=== PATIENT | male | born 1985 | race Caucasian/White ===

== ENCOUNTER 2021-04-18 02:23 | Inpatient (IN) | payer OTHER ==
[~2021-04-18] VITALS: Ht 170.2 cm; Wt 95.1 kg
[~2021-04-18 02:23] MED LIST: ALBU90OI INH; AZIT250 PO; NAPR220 PO; Stromectol3 MG PO
[2021-04-18] MEDS ORDERED: PRED20 PO (05:41)
[2021-04-18] MEDS ORDERED: IVERMECTIN3 MG PO (05:42)
[2021-04-18 06:08] LABS: BASOPHILS ABSOLUTE AUTO 0.01 K/mm3 (0.00-0.23); BASOPHILS PERCENT AUTO 0 % (0-2); EOSINOPHILS PERCENT AUTO 0 % (0-6); Hematocrit 39.7 % (37.0-53.0); Hemoglobin 13.1 g/dL (13.5-17.5); IMMATURE GRAN ABSOLUTE AUTO 0.08 K/mm3 (0.00-0.10); IMMATURE GRAN PERCENT AUTO 1 % (0-1); LYMPHOCYTES ABSOLUTE AUTO 0.86 K/mm3 (0.84-5.20); LYMPHOCYTES PERCENT AUTO 9 % (21-46); MONOCYTES ABSOLUTE AUTO 0.41 K/mm3 (0.16-1.47); MONOCYTES PERCENT AUTO 4 % (4-13); Mean Corpuscular HGB 28.5 pg (26.0-34.0); Mean Corpuscular Volume 86 fL (80-100); Mean Platelet Volume 10.1 fL (9.1-12.4); NEUTROPHILS ABSOLUTE AUTO 8.66 K/mm3 (1.96-9.15); NEUTROPHILS PERCENT AUTO 86 % (41-73); Platelet Count 218 K/mm3 (150-400); RDW Standard Deviation 41.1 fL (35.1-46.3); White Blood Cell Count 10.02 K/mm3 (4.00-11.30)
[2021-04-18 06:24] LABS: Alanine Aminotransfer (ALT/SGP 31 U/L (12-78); Albumin, Blood 2.8 g/dL (3.4-5.0); Albumin/Globulin Ratio 0.7 (0.8-1.8); Alk Phos 54 U/L (50-136); Anion Gap 8 mmol/L (6-16); Aspartate Aminotrans (AST/SGOT 31 U/L (12-37); Bilirubin, Total 0.4 mg/dL (0.1-1.0); Blood Urea Nitrogen 11 mg/dL (8-24); Bun/Creatinine Ratio 15.3 (12.0-20.0); CO2, Blood 25 mmol/L (21-32); Chloride, Blood 103 mmol/L (98-108); Creatinine, Blood 0.72 mg/dL (0.60-1.20); Globulin, Blood 4.2 g/dL (2.2-4.0); Glomerular Filtration Rate >60 (60-); Glucose, Blood 125 mg/dL (70-99); Sodium, Blood 136 mmol/L (136-145)
--- NOTE | 2021-04-18 16:41 | NUR ---
SHIFT SUMMARY PT ARRIVED FROM ED THIS AFTERNOON @ APPROX 1230. PT IS NOW ON 60 L/MIN c 55% VIA AIRVO. AT REST PT SATS REMAINED ABOVED 90% USING 15 L/MIN HIGH FLOW NC, WITH AMBULATION PT WOULD QUICKLY DROP TO THE HIGH 70'S LOW 80'S. RT RECOMMENDED AIRVO AT THAT TIME. LS COARSE @ BASES. PT WILL BEGIN REMDESIVER, LOVENOX, AND DECADRON. PT DENIES ANY DISTRESS OR WORSENING OF SYMPTOMS AT THIS TIME. HE IS CURRENTLY RESTING IN BED c CALL LIGHT WITHIN REACH, O2 SATS @ 92%.
--- NOTE | 2021-04-18 17:42 | NUR ---
Darius was resting and appeared comfortable and well attended to. I provided social attention, spiritual encouragement and audible intercession for non-pharmacologic benefit. Darius expressed appreciation for the support and consolation.
--- NOTE | 2021-04-18 18:19 | NUR ---
PHYSICIAN NOTIFIED PT SATING IN THE LOW 80% ON 60 L/MIN FiO2 @ 55%, DISCUSSED WITH RT, STATED TO JUMP PT UP TO 75% PT IS SATING 87-90%. CALLED PHYSICIAN FOR UPDATE, MARCO WANTS PT MOVED TO PCU. CHARGE NURSE NOTIFIED AND WAITING FOR BED. WILL CONTINUE TO MONITOR PT, PT IS ON CONT PULSE OX.
--- NOTE | 2021-04-19 02:40 | NUR ---
This nurse in chart trying to find out which Doctor ordered pt transfer to PCU, 04/18/21.
[2021-04-19 03:44] LABS: Hematocrit 43.2 % (37.0-53.0); Mean Corpuscular HGB 28.5 pg (26.0-34.0); Mean Corpuscular HGB Conc 32.4 g/dL (31.5-36.5); Mean Corpuscular Volume 88 fL (80-100); Mean Platelet Volume 9.8 fL (9.1-12.4); Platelet Count 246 K/mm3 (150-400); RDW Standard Deviation 41.6 fL (35.1-46.3); Red Blood Cell Count 4.92 M/mm3 (4.30-5.90); White Blood Cell Count 8.76 K/mm3 (4.00-11.30)
[2021-04-19 04:12] LABS: Alanine Aminotransfer (ALT/SGP 31 U/L (12-78); Albumin, Blood 2.7 g/dL (3.4-5.0); Albumin/Globulin Ratio 0.6 (0.8-1.8); Alk Phos 55 U/L (50-136); Anion Gap 5 mmol/L (6-16); Aspartate Aminotrans (AST/SGOT 32 U/L (12-37); Bilirubin, Total 0.4 mg/dL (0.1-1.0); Blood Urea Nitrogen 14 mg/dL (8-24); CO2, Blood 29 mmol/L (21-32); Calcium, Blood 8.7 mg/dL (8.5-10.1); Chloride, Blood 103 mmol/L (98-108); Creatinine, Blood 0.74 mg/dL (0.60-1.20); Globulin, Blood 4.5 g/dL (2.2-4.0); Glomerular Filtration Rate >60 (60-); Glucose, Blood 128 mg/dL (70-99); Potassium, Blood 3.6 mmol/L (3.5-5.5); Sodium, Blood 137 mmol/L (136-145); Total Protein, Blood 7.2 g/dL (6.4-8.2)
--- NOTE | 2021-04-19 06:00 | NUR ---
SHIFT SUMMARY PT TRANSFERRED FROM MEDICAL FLOOR ROOM 307 AT BEGINNING OF SHIFT. PT A&OX4. SP02>90% ON AIRVO, 60L 60% FI02. PT SLEPT ON SIDE, EDUCATED TO NOT LAY ON BACK. TELEMETRY READS NSR HR 80'S. PT DENIES PAIN. PT USED URINAL AT BEDSIDE. PT SLEPT OFF AND ON DURING SHIFT. PT'S , JERAMY, CALLED FOR UPDATE. PTS HAS MEDICATION QUESTIONS, ADVISED HER TO TRY TO GET AHOLD OF DR IN AM. CALL LIGHT I NREACH. WILL GIVE REPORT TO ONCOMING NURSE.
--- NOTE | 2021-04-19 14:21 | NUR ---
PT ALERT AND ORIENTED X4. TELE SHOWING SINUS WITH HR 70-80'S. DENIES CHEST PAIN/PRESSURE. VITAL SIGNS STABLE. ON AIRVO AT 60L AND 75%. THIS AM UPON SHIFT START PATIENT ON 60L AT 60%. REPOSITIONING IN BED TO SIT UP FOR BREAKFAST PATIENT DESATED TO MID 70'S. NOT RECOVERING WELL, SO PATIENT AIRVO INCREASED. HAS MAINTAINED SATURATIONS IN THE MID 90'S AT 60L AND 75%. PATIENT PRONING OR LAYING ON SIDE ALL MORNING AND AFTERNOON. PRODUCTIVE COUGH WITH YELLOW TINGED SPUTUM. BOWEL TONES PRESENT. USING URINAL AT BEDSIDE. ATTENDS IN PLACE. PERIPERAL PULSES STRONG. CALL PLACED TO THIS AM TO UPDATE. EXPRESSED PATIENT AT TIMES CAN BE ANXIOUS BUT HESITANT TO TALK WITH STAFF ABOUT THIS. TALKED WITH PATIENT AND NEW ORDER FOR ATIVAN PRN. REMDESIVIR INFUSED. EATING AND DRINKING WATER. CALL LIGHT IN REACH. WILL CONTINUE TO MONITOR.
--- NOTE | 2021-04-19 17:47 | NUR ---
SHIFT SUMMARY: SEE PREVIOUS NOTE. NO CHANGES IN TELE. AIRVO AT 60L AND 70% SATING LOW TO MID 90'S. CONTINUES TO HAVE PRODUCTIVE COUGH. PRONING AND SWITCHING FROM SIDE TO SIDE ALL DAY. PATIENT MOTIVATED TO PRONE AND LAY ON SIDES. USING URINAL AT BEDSIDE. DRINKING WATER AND EATING WELL. DENIES NEEDS, LAYING ON LEFT SIDE AT THIS TIME SATING 95%. CALL LIGHT IN REACH. WILL CONTINUE TO MONITOR AND REPORT OFF.
[2021-04-20 03:48] LABS: Hemoglobin 14.4 g/dL (13.5-17.5); Mean Corpuscular HGB 28.9 pg (26.0-34.0); Mean Corpuscular HGB Conc 33.5 g/dL (31.5-36.5); Mean Corpuscular Volume 86 fL (80-100); Mean Platelet Volume 9.8 fL (9.1-12.4); Platelet Count 326 K/mm3 (150-400); RDW Coefficient Variation 12.7 % (11.7-14.2); RDW Standard Deviation 39.8 fL (35.1-46.3); Red Blood Cell Count 4.99 M/mm3 (4.30-5.90)
--- NOTE | 2021-04-20 05:13 | NUR ---
SHIFT SUMMARY PT A&OX4. SP02>90% ON 60L 70% AIRVO AT START OF SHIFT. AT APPROX 0330, PT BEGAN TO PANIC AFTER A COUGHING FIT, STATED, "I CANT BREATHE", DESATTED TO 70'S. INCREASED OXYGEN TO 95% FI02, GAVE 1MG ATIVAN PER EMAR, AND RT IN ROOM FOR BREATHING TREATMENT. SATS SLOWLY INCREASED TO 90%. APPROX 0500, PT SATTING 100%, WAS ABLE TO TITRATE PT DOWN TO 60L 55%, NOW SATTING 97%. TELEMETRY READS NSR, HR 80'S. PT USED URINAL AT BEDSIDE. PT SLEPT MOST OF NIGHT, WOULD REPOSITION WHEN ENCOURAGED. PT SLEPT MOST OF NIGHT. PT'S CALLED FOR UPDATE. CALL LIGHT IN REACH. WILL GIVE REPORT TO ONCOMING NURSE.
--- NOTE | 2021-04-20 16:50 | NUR ---
SHIFT SUMMARY PT IS CURRENTLY ON AIRVO, 60 L/MIN c 75% FiO2, SATING ABOVE 92%. WAS ON 90% FiO2 THIS AM AND WAS ABLE TO DECREASE T/O SHIFT. PT IS A&O, COOPERATIVE c CARE, AND DENIES ANY DISTRESS BESIDES SOME ANXIETY AND SOB c EVEN THE SMALLEST BIT OF EXERTION. PRN ATIVAN GIVEN X1. BM X2 TODAY, LITTLE ORAL INTAKE. PT IS ENCOURAGE TO EAT DURING MEAL TIMES AND NUTRITIONAL SUPPLEMENTS OFFERED AT EACH MEAL WELL. ENCOURAGING PT TO SWITCH BETWEEN SIDE LAYING AND PRONE POSITIONS OFTEN, PT DOES FAVOR HIS R SIDE. PT IS CURRENTLY RESTING IN BED c CALL LIGHT WITHIN REACH, CONTINUOUS PULSE ON AND TELE MONITORING ON. CALLS APPROPRIATELY. UPDATED DURING THIS SHIFT.
[2021-04-21 03:54] LABS: Hematocrit 42.2 % (37.0-53.0); Hemoglobin 14.3 g/dL (13.5-17.5); Mean Corpuscular HGB 28.8 pg (26.0-34.0); Mean Corpuscular HGB Conc 33.9 g/dL (31.5-36.5); Mean Corpuscular Volume 85 fL (80-100); Mean Platelet Volume 9.7 fL (9.1-12.4); Platelet Count 379 K/mm3 (150-400); RDW Coefficient Variation 12.5 % (11.7-14.2); RDW Standard Deviation 38.6 fL (35.1-46.3); Red Blood Cell Count 4.97 M/mm3 (4.30-5.90); White Blood Cell Count 9.01 K/mm3 (4.00-11.30)
[2021-04-21 04:23] LABS: Alanine Aminotransfer (ALT/SGP 24 U/L (12-78); Albumin, Blood 2.4 g/dL (3.4-5.0); Albumin/Globulin Ratio 0.6 (0.8-1.8); Alk Phos 44 U/L (50-136); Anion Gap 8 mmol/L (6-16); Aspartate Aminotrans (AST/SGOT 19 U/L (12-37); Bilirubin, Total 0.4 mg/dL (0.1-1.0); Blood Urea Nitrogen 18 mg/dL (8-24); Bun/Creatinine Ratio 31.5 (12.0-20.0); CO2, Blood 25 mmol/L (21-32); Chloride, Blood 103 mmol/L (98-108); Creatinine, Blood 0.57 mg/dL (0.60-1.20); Glomerular Filtration Rate >60 (60-); Glucose, Blood 135 mg/dL (70-99); Potassium, Blood 3.8 mmol/L (3.5-5.5); Sodium, Blood 136 mmol/L (136-145); Total Protein, Blood 6.4 g/dL (6.4-8.2)
--- NOTE | 2021-04-21 07:18 | NUR ---
SHIFT SUMMARY PATIENT IS A PLESANT MAN WHO IS A&OX4 WITH GEN FATIGUE AND WEAKNESS. CURRENTLY ON AIRVO 60L, 66%FIO2 SATING MID 90'S. PRODUCTIVE COUGH BECOMING LESS FREQUENT PER REPORT. DESATS WITH ANY ACTIVITY. HAD TO FEED/CUT UP DINNER IT WAS TOO EXERTING FOR HIM.EDUCATION PROVIDED ON PROPER BREATHING TECHNIQUES AND THE NEED TO TURN/PRONE. ABLE TO GET HIM TO TURN A FEW TIMES WITH ASSISTANCE WITH GOOD RECOVERY. VSS. NSR ON THE MONITOR. TOLERATING REGULAR DIET BUT NOT MUCH OF AN APPETITE. VOIDING WELL PER URINAL. NO PAIN OR DISTRESS. REPORT GIVEN TO DAMIAN PATINO.
--- NOTE | 2021-04-21 18:06 | NUR ---
SHIFT SUMMARY PT ALERT AND ORIENTED X 4. HR STABLE BP STABLE. OXYGEN SATURATION MAINTAINED ABOVE 90% ON AIRVO AT 60L AND 77% FIO2. PT ENCOURAGED TO PRONE OR LAY ON SIDE MUCH POSSIBLE. NO CP OR PRESSURE REPORTED. PT REPORTS ANXIETY AT TIMES. MEDICATED PER EMAR. UPDATED ON PT T/O SHIFT. PT ABLE TO TURN SELF IN BED NEEDED. WILL CONT TO MONITOR UNTIL REPORT GIVEN TO NIGHTSHIFT RN.
--- NOTE | 2021-04-21 18:55 | NUR ---
UPDATED UPDATED REGARDING PT STATS AT THIS TIME
--- NOTE | 2021-04-22 06:51 | NUR ---
SHIFT SUMMARY PATIENT FOUND TO BE A PLESANT MAN WHO IS A&OX4 WITH SOME GEN WEAKNES. VSS. ON AIRVO 60L, 70% SATING MID 90'S. RECOVERY TIME AFTER EXERTION IMPROVING. CONTINUING TO ENCOURAGE SIDE TO SIDE TURNING WHICH PATIENT MOSTLY COMPLIANT WITH BUT COULD USE REINFORCEMENT. NSR ON THE MONITOR IN THE 70'S. NO PAIN OR DISTRESS NOTED UPON ASSESSMENT. TOELRATING REG DIET WITHOUT NAUSEA BUT POOR APPETITE. VOIDING WELL PER URINAL. SBA IN ROOM. WILL CONTINUE TO MONITOR.
--- NOTE | 2021-04-22 18:22 | NUR ---
SHIFT SUMMARY PT ALERT AND ORIENTED X 4. HR STABLE. BP STABLE. OXYGEN SATURATION MAINTAINED ABOVE 92% ON AIRVO AT 60L AND 70% FIO2. PT ABLE TO TURN SELF IN BED. ENCOURAGED TO PRONE. NO CP OR PRESSURE. WILL CONT TO MONITOR UNTIL REPORT GIVEN TO NIGHTSHIFT RN.
[2021-04-23 03:40] LABS: Hemoglobin 14.4 g/dL (13.5-17.5); Mean Corpuscular HGB 28.7 pg (26.0-34.0); Mean Corpuscular HGB Conc 33.5 g/dL (31.5-36.5); Mean Corpuscular Volume 86 fL (80-100); Mean Platelet Volume 9.2 fL (9.1-12.4); Platelet Count 364 K/mm3 (150-400); RDW Coefficient Variation 12.2 % (11.7-14.2); RDW Standard Deviation 37.9 fL (35.1-46.3); Red Blood Cell Count 5.02 M/mm3 (4.30-5.90); White Blood Cell Count 10.89 K/mm3 (4.00-11.30)
[2021-04-23 03:59] LABS: Alanine Aminotransfer (ALT/SGP 26 U/L (12-78); Albumin, Blood 2.5 g/dL (3.4-5.0); Albumin/Globulin Ratio 0.6 (0.8-1.8); Alk Phos 44 U/L (50-136); Anion Gap 6 mmol/L (6-16); Aspartate Aminotrans (AST/SGOT 14 U/L (12-37); Bilirubin, Total 0.5 mg/dL (0.1-1.0); Blood Urea Nitrogen 15 mg/dL (8-24); Bun/Creatinine Ratio 25.8 (12.0-20.0); CO2, Blood 28 mmol/L (21-32); Calcium, Blood 8.5 mg/dL (8.5-10.1); Chloride, Blood 102 mmol/L (98-108); Creatinine, Blood 0.58 mg/dL (0.60-1.20); Glomerular Filtration Rate >60 (60-); Glucose, Blood 104 mg/dL (70-99); Potassium, Blood 3.8 mmol/L (3.5-5.5); Sodium, Blood 136 mmol/L (136-145); Total Protein, Blood 6.5 g/dL (6.4-8.2)
--- NOTE | 2021-04-23 06:14 | NUR ---
SHIFT SUMMARY PATIEN A&OX4 WITH SOME GEN WEAKNESS. ON ARIVO 50L, 60% SATING MID 90'S ALL SHIFT. RECOVERY MUCH BETTER THAN PREVIOUSLY AND ENCOURAGING PROPER BREATHING HELPS WITH THIS. COUGH NOT BOTHERING HIM. DOING DECENT WITH SELF TURNS BUT COULD USE ENCOURAGMENT. VSS. NSR ON THE MONITOR. TOLERATING REGULAR DIET WITHOUT ISSUE. VOIDING WELL PER URINAL. NO PAIN OR DISTRESS NOTED UPON ASSESSMENT. SBA IN ROOM. WILL CONTINUE TO MONITOR UNTIL REPORT GIVEN TO DAYSHIFT RN.
--- NOTE | 2021-04-23 08:11 | NUR ---
Late entry for service provided on 04/22/21. Darius was resting and appeared comfortabe and well attended to. No signs of physical distress noted. I provided empathetic listening, compassionate presence and audible intercession for non-pharmacologic palliation and encouragement. Darius showed clear evidence of engagement, consolability and graititude. He thanked me for the attention and support.
--- NOTE | 2021-04-23 19:37 | NUR ---
SHIFT SUMMARY PT ALERT AND ORIENTED X 4. HR STABLE. BP STABLE. NO CP OR PRESSURE. OXYGEN SATURATION MAINTAINED ABOVE 90% ON 50 L AND 53% FIO2 VIA AIRVO. PT SBA. UPDATED. PT ABLE TO TURN SELF IN BED NEEDED. REPORT GIVEN TO CAREY MUKHERJEE.
--- NOTE | 2021-04-23 22:27 | NUR ---
TRANSFER. PT TRANSFERED TO MEDICAL FLOOR ROOM 337 @ 6361. REPORT GIVEN TO ALLIE PATINO. PT TOLERATED TRANSFER WELL
--- NOTE | 2021-04-24 06:29 | NUR ---
SHIFT SUMMARY PCU XFER THIS SHIFT, NO ACUTE CHANGES SINCE ASSUMING CARE, NO C/O ANY KIND, BEDRESTING AT THIS TIME, CALL LIGHT IN REACH, WILL CONT TO MONITOR UNTIL REPORT GIVNE TO DAY RN.
--- NOTE | 2021-04-24 19:29 | NUR ---
SHIFT SUMMARY PT WITH 1 ASSIST UP TO BEDSIDE COMMODE. HELPING HANDS IN TO SEE PT THIS AFTERNOON AND WALKED WITH PT AROUND IN ROOM WITH O2 REMAINING ON 8L/M HIGH FLOW AND SATS REMAINED AT OR ABOVE 90% AND RECOVERED QUICKLY. REPORTS APPETITE IS COMING BACK AND FEELS MUCH BETTER.
--- NOTE | 2021-04-25 03:43 | NUR ---
SHIFT SUMMARY PT HAS DONE WELL T/O THE SHIFT PT NOW ON 6L O2 AND IS MAINTAINING HIS SATS ABOVE 90%. PT REPORTS THAT HE IS DOING BETTER WITH HIS BREATHING WITH EXERTION. PT MOSTLY INDEPENDENT IN THE ROOM, CALLS APPROPRIATELY . NO ACUTE CHANGES OVERNIGHT. BED IN LOWEST POSITION. CALL LIGHT WITHIN REACH.
--- NOTE | 2021-04-25 18:38 | NUR ---
SHIFT SUMMARY PT UP TO BATHROOM INDEPENDENTLY TODAY. REPORTS NO RESP DISTRESS WITH ACTIVITY, O2 AT 6L/M BY HIGH FLOW UNTIL SUPPER TIME AND WAS DROPPED TO 4L/M. WILL RECHECK AFTER SHIFT CHANGE. CONTINUES TO HAVE NO RESP DISTRESS. WILL REPORT CONDITION TO ONCOMING SHIFT.
--- NOTE | 2021-04-26 03:51 | NUR ---
SHIFT SUMMARY PATIENT HAD NO ACUTE CHANGES OBSERVED. AXOX 4 AND INDEPENDENT IN ROOM. ON 4L HIGH FLOW O2. DENIES CHEST PAIN, SOB, AND N/V. VSS/AFEBRILE. PIV REMAINS INTACT. CALL LIGHT IN REACH. BED IN LOWEST POSITION. WILL CONTINUE TO MONITOR UNTIL DAY SHIFT NURSE ASSUMES CARE.
--- NOTE | 2021-04-26 17:39 | NUR ---
WEANING TOLERATED. ON 2L NC SATS 93%. REPORTS NO DYSPNEA AT REST OR ON EXERTION.
--- NOTE | 2021-04-27 03:14 | NUR ---
SHIFT SUMMARY, PATIENT HAD NO ACUTE CHANGES OBSERVED. AXOX 4 AND INDEPENDENT IN ROOM. ON 2L O2 N/C. PIV REMAINS INTACT. VSS/AFEBRILE. DENIES PAIN AND N/V. COOPERATIVE WITH CARE. CALL LIGHT IN REACH. BED IN LOWEST POSITION. WILL CONTINUE TO MONITOR UNTIL DAY SHIFT NURSE ASSUMES CARE.
--- NOTE | 2021-04-27 09:39 | NUR ---
HOME O2 EVAL. ON ROOM AIR 89%-90% AT REST WITH HEART 89 BPM. WHILE AMBULATING SATS DROPPED TO 85% ON ROOM AIR. OXYGEN TITRATED UP TO 4L WHILE AMBULATING TO MAINTAIN SATS 89%-90%, HEART RATE 125 BPM. ROOM AT REST. 4L WITH ACTIVITY.
--- NOTE | 2021-04-27 15:49 | NUR ---
DISCHARGED HOME. ALL QUESTIONS ANSWERED. TEACHBACK METHOD UTILIZED. ALL PERSONAL BELONGINGS SENT WITH PATIENT.
== END 2021-04-27 14:44 | disposition home or self-care (01) | DRG 177 ==
LOC: ER 02:23 → PCU 05:35 → ERHOLD 05:35 → MEDS 11:49 → PCU 19:45 → MEDS 04-23 21:45
PROVIDERS: Emergency Medicine; Internal Medicine; ADMIT Internal Medicine
PROC: 8E0ZXY6 Isolation (ICD-10-PCS; principal; 2021-04-18)
PROC: 3E0333Z Introduction of Anti-inflammatory into Peripheral Vein, Percutaneous Approach (ICD-10-PCS; 2021-04-18)
PROC: XW033E5 Introduction of Remdesivir Anti-infective into Peripheral Vein, Percutaneous Approach, New Technology Group 5 (ICD-10-PCS; 2021-04-18)
DX: U07.1 COVID-19 (principal); J12.82 Pneumonia due to coronavirus disease 2019; J96.01 Acute respiratory failure with hypoxia; J45.909 Unspecified asthma, uncomplicated; Z79.899 Other long term (current) drug therapy
CPT/HCPCS: 36415; 71045; 80053; 85025; 85027; 85379; 85651; 86140; 94640; 94664; 94760; 94762; 96372-59; 96374; 96375; 97161; 99284-25; 99285-25; A9270; C9113; J1100; J1650; J2060; J7050